=== PATIENT | female | born 1980 | race Caucasian/White ===

== ENCOUNTER → 2017-06-13 | Outpatient (CLI) | payer BC ==
[2014-07-11 17:17] VITALS: BP 129/85
--- NOTE | 2017-06-13 12:20 | NM ---
Indication: Pain Exam: Nuclear medicine HIDA scan and ejection fraction Technique: The patient was injected with 5.4 mCi of technetium 99 M mebrofenin IV and delayed images were obtained. Findings: There is physiologic uptake throughout the liver with no focal defects seen. There is uptak e in the gallbladder and small bowel within 40 minutes. The patient was then given an 8 oz of Ensure Plus and a gallbladder ejection fraction was calculated at 4.6%. Impression: Markedly decreased gallbladder ejection fraction suggestive of biliary dyskinesia otherwi se, unremarkable. Reported By:
== END ==
LOC: RAD 09:10
PROVIDERS: ATTEND Internal Medicine
DX: R10.11 Right upper quadrant pain (principal)
CPT/HCPCS: 78227; A9537